=== PATIENT | female | born 2005 | race Hispanic/Latino ===

== ENCOUNTER 2025-08-31 08:31 | Emergency (ER) | payer SELFPAY ==
[2025-08-31] MEDS ORDERED: diphenhydrAMINE 50 MG/ML VIAL ONE (09:10)
[2025-08-31] MEDS ORDERED: Metoclopramide HCl 10 MG (2 mL) VIAL ONE (10:00)
== END 2025-08-31 11:00 | disposition home or self-care (01) ==
LOC: ERS 08:31
DX: S09.90XA Unspecified injury of head, initial encounter (principal); M54.2 Cervicalgia; W10.9XXA Fall (on) (from) unspecified stairs and steps, initial encounter
CPT/HCPCS: 70450; 72125; 96365; 96375; J1200; J2765

== ENCOUNTER 2025-09-01 16:33 | Emergency (ER) | payer SELFPAY ==
[2025-09-01] MEDS ORDERED: Metoclopramide HCl 10 MG (2 mL) VIAL ONE (18:31)
[2025-09-01] MEDS ORDERED: diphenhydrAMINE 50 MG/ML VIAL ONE (18:31)
[2025-09-01] MEDS ORDERED: Ketorolac Tromethamine 30 MG (1 mL) VIAL ONE (18:31)
[2025-09-01 19:00] LABS: #Basophils 0.05 10x3/uL (0.0-0.2); #Eosinophils 0.07 10x3/uL (0.0-0.7); #Monocytes 0.50 10x3/uL (0.11-0.59); #Neutrophils 3.86 10x3/uL (1.40-6.50); %Basophils 0.8 % (0.0-1.0); %Eosinophils 1.2 % (0.0-10.0); %Lymphocytes 26.2 % (28.0-48.0); %Monocytes 8.2 % (0.0-4.0); %Neutrophils 63.4 % (31.0-61.0); Hematocrit 37.5 % (36.0-47.0); Hemoglobin 11.8 g/dL (12.0-16.0); Mean Corpuscular Hemoglobin 24.1 pg (25.0-35.0); Mean Corpuscular Volume 76.5 fL (78.0-98.0); Platelet Count 216 10x3/uL (130-400); Red Blood Cell (RBC) Count 4.90 mill/uL (4.00-5.20); White Blood Cell (WBC) Count 6.08 10x3/uL (4.8-10.8)
[2025-09-01 19:14] LABS: ALT (SGPT) 14 U/L (Less than 34); AST (SGOT) 25 U/L (11-34); Albumin 4.3 g/dL (3.1-4.5); Alkaline Phosphatase 64 U/L (40-100); Anion Gap 8 mmol/L (10-20); BUN (Urea Nitrogen) Less than 4 mg/dL (7.0-18.7); Bilirubin, Total 0.4 mg/dL (0.3-1.2); Calc. Creatinine Clearance 0 mL/min (70-130); Calcium 9.4 mg/dL (7.8-10.44); Carbon Dioxide 25 mmol/L (22-29); Chloride 109 mmol/L (98-107); Globulin 3.1 g/dL (2.4-3.5); Glucose 91 mg/dL (70-105); Potassium 3.6 mmol/L (3.5-5.1); Sodium 138 mmol/L (136-145)
== END 2025-09-01 19:59 | disposition home or self-care (01) ==
LOC: ERS 16:33
DX: R51.9 Headache, unspecified (principal)
CPT/HCPCS: 80053; 85025; 96365; 96375; J1200; J1885; J2765